=== PATIENT | female | born 1960 | race Caucasian/White ===

== ENCOUNTER 2024-05-23 22:46 | Emergency (ER) | payer OTHER, SELFPAY ==
[2024-05-23 22:48] VITALS: BP 140/100
[2024-05-23 23:13] LABS: Urine Albumin 3+ (Neg - Trace); Urine Bilirubin Negative (Negative); Urine Character Slightly Cloudy (Clear); Urine Color Yellow; Urine Glucose 1+ (Negative); Urine Ketone Negative (Negative); Urine Leukocyte 3+ (Negative); Urine Nitrite Negative (Negative); Urine Occult Blood 3+ (Negative); Urine Specific Gravity 1.025 (<1.030); Urine Urobilinogen Negative (Neg - 1+)
[2024-05-23 23:24] LABS: Hematocrit 38.5 % (37.0-47.0); Hemoglobin 13.3 g/dL (12.0-16.0); Mean Corp Hgb Conc. 34.5 g/dL (33.0-37.0); Mean Corpuscular Hgb 31.8 pg (27.0-31.0); Mean Corpuscular Volume 92.1 fL (81.0-99.0); Mean Platelet Volume 9.4 fL (7.4-10.4); Platelet Count 251 10^3/uL (130-400); Red Blood Cell Count 4.18 10^6/uL (4.20-5.40); Red Cell Dist. Width 12.2 % (11.5-14.5); White Blood Cell Count 9.5 10^3/uL (4.8-10.8)
[2024-05-23 23:42] LABS: Urine Bacteria Few (Negative); Urine White Cell 50-60 /HPF (0-5)
[2024-05-23 23:44] LABS: Blood Urea Nitrogen 19 mg/dl (7-17); Calcium 9.3 mg/dl (8.4-10.2); Carbon Dioxide 29 mmol/L (22-30); Chloride 102 mmol/L (98-107); Glucose 109 mg/dl (70-99); Potassium 3.9 mmol/L (3.5-5.1); Sodium 138 mmol/L (135-145); eGFR > 60.00
[2024-05-23 23:58] VITALS: BP 89/61
[2024-05-23 23:59] VITALS: BMI 23.4
[2024-05-24] VITALS: BP 94/66
[2024-05-24 01:00] VITALS: BP 106/64
--- NOTE | 2024-05-24 01:13 | ED.GENMED ---
History of Present Illness
General
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
Time Seen by Provider: 05/24/24 00:38
History of Present Illness
History of Present Illness:
63-year-old female with history of dementia presenting for concern of urinary tract infection. Patient arrives with who notes for the past few days patient has been having some hesitancy with urination and reporting pain with urination.
Does note history of UTIs in the past. Patient denying any fever. She denies any present abdominal pain. feels that she has been having some lower abdominal discomfort. She otherwise denies chest pain or difficulty breathing. No report
of any blood in the urine. Patient denying any additional acute medical complaints
Past History
Past History
ED Past Medical History: None
ED Past Surgical History: None
Social History
Tobacco: Non-smoker
Alcohol: Occasional
Drug: None
Personal:
Living: with family
Phy Exam
Physical Exam
Physical Exam:
General: Well-appearing, no clinical signs of dehydration, nontoxic and in no acute distress
HEENT: protecting airway
Neck: appears supple
CV: Normal heart rate, regular rhythm
Resp: No accessory muscle use, no increased work of breathing, lungs clear to auscultation bilaterally
Abd: Soft and non-distended, no tenderness to palpation
Extremities: No deformities, no swelling
Neuro: alert, no focal neurologic deficit
: deferred
Rectal: deferred
Psych: Normal affect
Skin: Intact
Course
Orders/Labs/Results
Orders:
Orders
05/23/24 22:59
Urinalysis Reflex To Culture Urgent
Date Specimen was Collected: 05/23/24
Time Specimen was Collected: 22:55
Urine Microscopic Reflex Cult Urgent
Urine Culture Urgent
SUDEEP Source: U
Specimen Description:
Date Specimen was Collected: 05/23/24
Time Specimen was Collected: 22:55
05/23/24 23:16
BMP [Basic Metabolic Panel] Urgent
Complete Blood Count/No Diff Urgent
05/24/24 01:13
Cephalexin Monohydrate [Keflex] 500 mg PO NOW STA
Abnormal Lab Results
05/23/24 05/23/24
22:59 23:16
RBC 4.18 L 10^6/uL
(4.20-5.40)
MCH 31.8 H pg
(27.0-31.0)
BUN 19 H mg/dl
(7-17)
Glucose 109 H mg/dl
(70-99)
Ur Occult Blood Reflex 3+ A
(Negative)
Leukocyte Esterase Rfl 3+ A
(Negative)
Urine RBC 7-10 A /HPF
(0-2)
Urine WBC (Reflex) 50-60 A /HPF
(0-5)
Urine Bacteria (Reflex) Few A
(Negative)
Urine Glucose 1+ A
(Negative)
Urine Albumin (Reflex) 3+ A
(Neg - Trace)
05/23/24 23:16
05/23/24 23:16
Vital Signs
Initial and Last Documented VS:
Initial Vital Signs
Temp Pulse Resp BP Pulse Ox
98.1 F 74 20 140/100 97
05/23/24 22:48 05/23/24 22:48 05/23/24 22:48 05/23/24 22:48 05/23/24 22:48
Last Documented Vital Signs
Temp Pulse Resp BP Pulse Ox
98.1 F 74 20 94/66 97
05/23/24 22:48 05/23/24 22:48 05/23/24 22:48 05/24/24 00:00 05/24/24 00:00
MDM/Problems Addressed
MDM/Problems Addressed:
63-year-old female with history of dementia presenting for concern of urinary tract infection. Vital signs are normal.
On exam patient is resting comfortably, no acute distress or discomfort. Benign abdominal exam, no focal reproducible tenderness. Patient afebrile, nontoxic. Patient had laboratory analysis prior to my assessment, no leukocytosis. Urine does
show some sign of infection with leukocytes and bacteria. Given symptoms, will send urine culture and treat as a UTI. Otherwise feel candidate for outpatient therapy. Return precautions discussed to patient and at bedside who verbalized
understanding
*Critical Care Note
Total Time (30-74mins, 75-104mins- exclusive of procedures): Not Applicable
ED Attending Note
-
Portions of this chart may have been created with voice recognition software.� Occasional wrong word or��sound alike� substitutions may have occurred due to the inherent limitations of voice recognition software.
Discharge Plan
Departure
Prescriptions:
No Action
ondansetron 4 MG tablet,disintegrating
4 mg PO TIDPRN PRN (Reason: nausea/vomiting) Qty: 12 0RF
Referrals:
Arthur Bah MD [Family Provider] -
Interventions
Interventions:
*Risk Screen - Suicide Last Done: 05/23/24 22:48
*General Assessment Last Done: 05/23/24 22:48
*Neglect/Abuse Screening Last Done: 05/23/24 22:48
ED- Fall Risk Assessment Last Done: 05/23/24 22:48
*ED COVID-19 Vaccine History Last Done: 05/23/24 22:48
ED-Female Genitourinary Assessment Last Done: 05/23/24 23:59
Discharge Date and Time
Print Language: TRINIDADIAN
[2024-05-24] MEDS: KEFLEX 500 MG PO (01:32)
== END 2024-05-24 01:50 | disposition home or self-care (01) ==
LOC: EMR 22:46
PROVIDERS: Emergency Medicine; EMERGENCY PHYSICIAN Student in an Organized Health Care Education/Training Program; FAMILY PHYSICIAN Family Medicine
DX: N39.0 Urinary tract infection, site not specified (principal); R39.11 Hesitancy of micturition; F03.90 Unspecified dementia, unspecified severity, without behavioral disturbance, psychotic disturbance, mood disturbance, and anxiety; Z87.440 Personal history of urinary (tract) infections
CPT/HCPCS: 99283; 80048; 81003; 81015; 85027; 87086; 87147

== ENCOUNTER 2024-12-22 05:37 | Emergency (ER) | payer OTHER, SELFPAY ==
[2024-12-22 05:44] VITALS: BP 95/50
[2024-12-22 05:55] VITALS: BMI 23.0
--- NOTE | 2024-12-22 06:01 | EDRN ---
Pt's says pt has been complaining for couple days of abd pain. He says it has been hard to decipher what has been going on. Pt woke around 0500 with lower left abdominal pain. No nausea/vomiting, fever/chills/cough, diarrhea.
unsure of pt's last BM. No cp/sob. No change in eating. No urinary symptoms. Pt denies pain currently.
[2024-12-22 06:12] LABS: Hematocrit 38.6 % (37.0-47.0); Hemoglobin 13.0 g/dL (12.0-16.0); Mean Corp Hgb Conc. 33.7 g/dL (33.0-37.0); Mean Corpuscular Volume 91.5 fL (81.0-99.0); Nucleated Red Blood Cells % 0 %; Platelet Count 254 10^3/uL (130-400); Red Cell Dist. Width 12.3 % (11.5-14.5)
[2024-12-22 06:32] LABS: ALT (SGPT) 17 U/L (0-35); AST (SGOT) 22 U/L (14-36); Albumin 4.2 g/dl (3.5-5.0); Alkaline Phosphatase 57 U/L (38-126); Blood Urea Nitrogen 11 mg/dl (7-17); Calcium 9.3 mg/dl (8.4-10.2); Carbon Dioxide 26 mmol/L (22-30); Chloride 107 mmol/L (98-107); Estimated Creatinine Clearance 59 ml/min; Glucose 126 mg/dl (70-99); Lipase 143 U/L (23-300); Potassium 3.9 mmol/L (3.5-5.1); Sodium 139 mmol/L (135-145); Total Protein 7.1 g/dl (6.3-8.2); eGFR > 60.00
--- NOTE | 2024-12-22 06:33 | ED.GENMED ---
History of Present Illness
General
Chief Complaint: Abdominal Pain
Source: patient
Exam Limitations: none
Time Seen by Provider: 12/22/24 06:08
Nursing documentation reviewed up to this point in time: agreed with
History of Present Illness
History of Present Illness:
64-year-old female with past medical history brought to the ER by for evaluation of lower abdominal pain. reports patient has been complaining of subtle lower left-sided abdominal pain for the past several days but today pain woke
her up from sleep. She has been eating and drinking well no fever or chills he is not aware of any change in bowel habits.
Past History
Past History
ED Past Medical History: None
ED Past Surgical History: None
Social History
Tobacco: Non-smoker
Alcohol: Occasional
Drug: None
Personal:
Living: with family
Phy Exam
General Physical Exam
General Presentation: no apparent distress
General age: appears stated age
General Skin: warm and dry
General Habitus: normal
General Mental: alert
General Hydration: appears well hydrated
Cardiovascular Exam
Cardiovascular Exam: regular rate/rhythm, no murmur and normal peripheral pulses
Pulmonary Exam
Pulmonary Exam: lungs clear and no respiratory distress
Gastrointestinal Exam
Gastrointestinal Exam: soft and other (Mild left side /lower abd tenderness)
Neurological Exam
Neurological Exam: alert
Musculoskeletal Exam
Musculoskeletal Exam: full ROM
Skin Exam
Skin Exam: normal color and warm/dry
Psychiatric Exam
Psychiatric Exam: normal mood/affect
Course
Orders/Labs/Results
Orders:
Orders
12/22/24 05:57
IV Insert/Care/Rem.- Treatment PRN
12/22/24 06:03
Complete Blood Count/With Diff Urgent
Comprehensive Metabolic Panel Urgent
Lipase Urgent
12/22/24 06:35
CT Abd/pelvis W Iv Cont Urgent
Comment:
Reason For Exam: left sided lower abd pain
12/22/24 07:07
Urinalysis Reflex To Culture Urgent
Date Specimen was Collected: 12/22/24
Time Specimen was Collected: 07:04
Urine Microscopic Reflex Cult Urgent
Urine Culture Urgent
SUDEEP Source: U
Specimen Description:
Date Specimen was Collected: 12/22/24
Time Specimen was Collected: 07:04
Abnormal Lab Results
12/22/24 12/22/24
06:03 07:07
Eosinophils % 7.7 H %
(0-6)
Glucose 126 H mg/dl
(70-99)
Leukocyte Esterase Rfl 1+ A
(Negative)
Urine Bacteria (Reflex) Few A
(Negative)
12/22/24 06:03
12/22/24 06:03
Vital Signs
Initial and Last Documented VS:
Initial Vital Signs
Temp Pulse Resp BP Pulse Ox
98.6 F 66 20 95/50 96
12/22/24 05:44 12/22/24 05:44 12/22/24 05:44 12/22/24 05:44 12/22/24 05:44
Last Documented Vital Signs
Temp Pulse Resp BP Pulse Ox
98.6 F 63 15 97/47 97
12/22/24 05:44 12/22/24 07:09 12/22/24 07:09 12/22/24 07:09 12/22/24 07:09
MDM/Problems Addressed
Differential Diagnosis Includes:
not limited to: diverticulitis; UTI , constipation
MDM/Problems Addressed:
Patient is a 64-year-old female with Alzheimer's who was brought by for evaluation of intermittent lower abdominal pain. No obvious fever or chills or UTI symptoms. Patient presents awake alert she is a very poor historian and has been
getting most of history. Abdomen soft questional mild lower abdominal tenderness on exam CAT scan negative for acute findings however additional findings include pelvic congestion syndrome moderate fecal material mild circumferential thickening of
the distal esophagus and gastroesophageal junction and a pulmonary nodule.
Patient's labs are unremarkable she is well-appearing and afebrile. I did review with treating constipation with MiraLAX and starting off by following up with her family doctor GI and PCP. Regarding pelvic congestion syndrome she does have
A LOG SKIDDER. I did review with follow-up with family doctor and [facility] for this. In addition she does have a GI doctor that she has not seen either of these physicians in a while. will call family doctor/GI .
Encouraged close follow-up with family doctor to help oversee all of these additional findings on CAT scan which will need evaluation.
Patient is stable for discharge home
Chronic conditions affecting care:
Alzheimers
*Radiology
Radiology exam reviewed: radiology read reviewed
*Pulse Oximetry
SaO2: 96
Oxygen Mode of Delivery: Room air
Patient hypoxic: no
*Critical Care Note
Total Time (30-74mins, 75-104mins- exclusive of procedures): Not Applicable
ED Attending Note
-
Portions of this chart may have been created with voice recognition software.� Occasional wrong word or��sound alike� substitutions may have occurred due to the inherent limitations of voice recognition software.
Discharge Plan
Departure
Patient Disposition: Home (Routine Discharge)
Date of Disposition: 12/22/24
Time of Disposition: 07:59
Patient with high blood pressure during this ER visit?: No
Condition: Fair
Covid-19: Not Applicable
Discharge Problem:
Abdominal pain
Instructions: Diarrhea in teens and adults, Abdominal Pain
Prescriptions:
No Action
donepezil 10 mg Tablet
10 mg PO DAILY
sertraline 25 mg Tablet
25 mg PO DAILY
lecanemab-irmb 100 mg/mL Solution
200 mg IV Q2W
Referrals:
Arthur Bah MD [Family Provider, Family Practice]
Brisa Dolan MD [Active, Gastroenterology]
Marimar Garcia DO [Active, Gynecology]
Activity Restrictions/Additional Instructions:
As discussed please start MiraLAX daily increase fiber intake water intake fresh fruits and vegetables.
Please follow-up with family doctor as well as specialists including GI and LOG SKIDDER for additional findings found on CAT scan including pelvic congestion syndrome, and findings on esophagus. You were given GI and gynecology referral names if needed.
Return if any worsening of symptoms
Interventions
Interventions:
*Risk Screen - Suicide Last Done: 12/22/24 05:55
*General Assessment Last Done: 12/22/24 05:55
*Neglect/Abuse Screening Last Done: 12/22/24 05:55
*ED- Fall Risk Assessment Last Done: 12/22/24 06:04
*Nursing Disposition Last Done: 12/22/24 08:11
TZ-Jrqljo-Xjdxirbfbt Assessment Last Done: 12/22/24 06:10
Discharge Date and Time
Discharge Date/Time: 12/22/24 08:12
Print Language: SLOVAK
[2024-12-22 07:09] VITALS: BP 97/47
[2024-12-22 07:25] LABS: Urine Character Clear (Clear)
[2024-12-22 07:42] LABS: Urine Red Blood Cell 0-2 /HPF (0-2); Urine Urothelial Cell 0-2 /LPF (FEW)
== END 2024-12-22 08:12 | disposition home or self-care (01) ==
LOC: EMR 05:37
PROVIDERS: Emergency Medicine; Nurse Practitioner; EMERGENCY PHYSICIAN Emergency Medicine; FAMILY PHYSICIAN Family Medicine
DX: R10.30 Lower abdominal pain, unspecified (principal); F02.80 Dementia in other diseases classified elsewhere, unspecified severity, without behavioral disturbance, psychotic disturbance, mood disturbance, and anxiety; G30.9 Alzheimer's disease, unspecified
CPT/HCPCS: 99284; 74177; 80053; 81003; 81015; 83690; 85025; 87086; Q9967